=== PATIENT | male | born 1995 | race Hispanic/Latino ===

== ENCOUNTER 2021-10-15 23:44 | Emergency (ER) | payer OTHER, SELFPAY ==
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
[2021-10-15 23:50] VITALS: BP 149/89; PULSE 110; RESP 16; TEMP 36.4; O2SAT 100
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
[2021-10-16] MEDS: TETANUS,DIPHTHERIA,AC PERTUSSIS ADULT (0.5 ML) BOOSTRIX IM (01:00)
[2021-10-16] MEDS: fentaNYL CITRATE INJ (*CRX) 100 MCG/2 ML VIAL 50 MCG IV PUSH ×2 (01:03→02:01)
[2021-10-16] MEDS: SODIUM CHLORIDE 0.9% IV 1,000 ML 999 ML IV CONT (01:07)
[2021-10-16 03:15] VITALS: BP 138/98; PULSE 68; RESP 18; O2SAT 100
== END 2021-10-16 03:30 | disposition home or self-care (01) ==
PROVIDERS: Emergency Provider Nurse Practitioner Family
DX: S92.141A Displaced dome fracture of right talus, initial encounter for closed fracture (principal); S61.215A Laceration without foreign body of left ring finger without damage to nail, initial encounter; S61.217A Laceration without foreign body of left little finger without damage to nail, initial encounter; S06.9X9A Unspecified intracranial injury with loss of consciousness of unspecified duration, initial encounter; Z23 Encounter for immunization; V48.5XXA Car driver injured in noncollision transport accident in traffic accident, initial encounter
CPT/HCPCS: 12002; 29515; 70450; 71046; 72125; 73130; 73610; 73630; 90471; 90715; 96361; 96365; 96375; 96376; 99284; J0690; J3010; J7030